=== PATIENT | male | born 1950 | race Caucasian/White ===

== ENCOUNTER → 2020-03-02 | Outpatient (CLI) | payer OTHER ==
[~2020-03-02] MED LIST: CRESTOR10 MG PO; DIOVAN320 MG PO; NEXIUM40 MG PO; NORVASC5 M1 PO; RANEXA500 MG PO; TOPROL XL25 MG PO; WELLBUTRIN XL300 MG PO
== END ==
LOC: SJCVCIMAG 07:43
PROVIDERS: ATTEND Internal Medicine
DX: R00.0 Tachycardia, unspecified (principal); I11.9 Hypertensive heart disease without heart failure; I77.810 Thoracic aortic ectasia; E11.9 Type 2 diabetes mellitus without complications; G47.33 Obstructive sleep apnea (adult) (pediatric); Z79.899 Other long term (current) drug therapy